=== PATIENT | male | born 1975 | race Caucasian/White ===

== ENCOUNTER 2018-10-24 15:23 | Outpatient (CLI) | payer OTHER | END 2018-10-24 15:24 | disposition home or self-care (01) | LOC: SC 15:23 | PROVIDERS: ATTEND Internal Medicine Pulmonary Disease | DX: G47.10 Hypersomnia, unspecified (principal); R41.89 Other symptoms and signs involving cognitive functions and awareness; G47.8 Other sleep disorders; R06.83 Snoring; R06.81 Apnea, not elsewhere classified | CPT/HCPCS: 99203; 99212 ==

== ENCOUNTER 2018-12-01 20:27 | Outpatient (CLI) | payer OTHER | END 2018-12-01 20:28 | disposition home or self-care (01) | LOC: SC 20:27 | PROVIDERS: ATTEND Internal Medicine Pulmonary Disease | DX: G47.33 Obstructive sleep apnea (adult) (pediatric) (principal); G47.61 Periodic limb movement disorder | CPT/HCPCS: 95810 ==

== ENCOUNTER 2018-12-19 15:21 | Outpatient (CLI) | payer OTHER | END 2018-12-19 15:22 | disposition home or self-care (01) | LOC: SC 15:21 | PROVIDERS: ATTEND Internal Medicine Pulmonary Disease | DX: G47.33 Obstructive sleep apnea (adult) (pediatric) (principal) | CPT/HCPCS: 99212; 99213 ==

== ENCOUNTER 2022-07-17 14:20 | Outpatient (CLI) | payer BC ==
--- NOTE | 2022-07-17 19:52 | XRAY Report ---
PROCEDURE: Hand 3 View RT INDICATIONS: RIGHT HAND PX TECHNIQUE: 3 views of the hand(s) acquired. COMPARISON: None FINDINGS: Bones: No fractures or dislocations. Osteoarthritic changes are noted at first CMC joint with small corticated fragment over lateral aspect of first CMC joint suggestive of old healed injury. No suspi cious bony lesions. Soft tissues: No suspicious soft tissue calcifications. 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 No acute fracture or dislocation. Reviewed by: Alexis Lau MD on 07/17/2022 7:50 PM PST Approved by: Alexis Lau MD on 07/17/2022 7:50 PM PST Station ID: [id number]
== END 2022-07-17 14:21 | disposition home or self-care (01) ==
LOC: DI 14:20
PROVIDERS: ATTEND Student in an Organized Health Care Education/Training Program
DX: M18.11 Unilateral primary osteoarthritis of first carpometacarpal joint, right hand (principal)

== ENCOUNTER 2023-07-19 18:20 | Emergency (ER) | payer BC ==
[2023-07-19 18:35] VITALS: BP 146/90; O2SAT 93
--- NOTE | 2023-07-19 19:50 | ED Physician Documentation ---
History of Present Illness - Stated complaint Stated Complaint: DETOX - Chief complaint Chief Complaint: General - History obtained from History obtained from: Patient - Additonal information Additional information: He presents with a sober friend worried that he is going and alcohol withdrawal. Last drink was only about 2 hours ago. He has been drinking heavily for the last 2 to 3 weeks. He is feeling anxious. PD PAST MEDICAL HISTORY - Past Medical History Past Medical History: No - Past Surgical History Past Surgical History: No - Present Medications Home Medications: Ambulatory Orders Medication Instructions Recorded Confirmed Escitalopram Oxalate [Lexapro] 5 mg PO DAILY 07/19/23 07/19/23 LORazepam [Ativan] 1 mg PO TID PRN #12 tablet 07/19/23 - Allergies Allergies/Adverse Reactions: Allergies Allergy/AdvReac Type Severity Reaction Status Date / Time No Known Drug Allergies Allergy Verified 07/19/23 18:31 - Social History Does the pt smoke?: No Smoking Status: Never smoker Does the pt drink ETOH?: Yes Does the pt have substance abuse?: No - Immunizations Immunizations are current?: No PD ED PE NORMAL - Vitals Vital signs reviewed: Yes - General General: Alert and oriented X 3, Other (Slow slurred speech and overtly friendly behavior) - HEENT HEENT: PERRL, EOMI (With nystagmus) - Neck Neck: Supple, no meningeal sign, No bony TTP - Neuro Neuro: Alert and oriented X 3, dispensing operator 2-12 intact, Other (Mild ataxia on [id number] testing, not tremulous) Eye Opening: Spontaneous Motor: Obeys Commands Verbal: Oriented GCS Score: 15 - Psych Psych: Normal mood, Normal affect Results - Vitals Vitals: Vital Signs - 24 hr 07/19/23 18:24 Temperature 36.5 C Heart Rate 111 H Respiratory 16 Rate Blood Pressure 146/90 H O2 Saturation 93 Oxygen O2 Source Room air PD Medical Decision Making - ED course ED course: 48-year-old gentleman with concerns about alcohol withdrawal. He is not in withdrawal now, he is still intoxicated. His sober friend will take him home with a prescription for benzos to start tomorrow. The alcohol is out of the house. She was given signs and symptoms to watch out and return for. Departure - Departure Disposition: Home, Self Care Clinical Impression: Alcohol intoxication Condition: Good Record reviewed to determine appropriate education?: Yes Instructions: ED Alcohol Intoxication Prescriptions: LORazepam [Ativan] 1 mg PO TID PRN #12 tablet PRN Reason: Anxiety Comments: I sent prescription to [facility] Stay with sober, responsible adult. No alcohol Forms: PCP List
== END 2023-07-19 19:55 | disposition home or self-care (01) ==
LOC: ED 18:20
DX: F10.129 Alcohol abuse with intoxication, unspecified (principal)
CPT/HCPCS: 99282; 99283